=== PATIENT | male | born 1985 | race Caucasian/White ===

== ENCOUNTER 2017-04-13 23:41 | Emergency (ER) ==
[2017-04-13 23:54] VITALS: BP 143/83; TEMP 97.4; BMI 33.5
[2017-04-13] MEDS ORDERED: TORADOL IM STA (23:59)
--- NOTE | 2017-04-14 00:15 | ED.PDOC ---
General ED Provider: Dr. ELIO OBANDO Chief Complaint: Shoulder Pain/Injury Stated Complaint: Injured the left shoulder while trying to hold the grand mothers PMD. felt pulling on left shoulder, jacy since hurt to move and raise. Time Seen by Physician: 00:12 Mode of Arrival: Walk-In Information Source: Patient Nursing and Triage Documentation Reviewed and Agree: Yes Musculoskeletal Complaint Exam - Shoulder Pain Complaint/Exam Mechanism of Injury: Reports: Trauma Symptoms Are: Still present Timing: Constant Initial Severity: Moderate Current Severity: Moderate Location: Reports: Discrete Character: Reports: Aching, Throbbing Alleviating: Reports: None Aggravating: Reports: None Associated Signs and Symptoms: Reports: Bruising. Denies: Swelling, Redness, Fever, Weakness, Numbness, Tingling Related History: Reports: Similar episode Non-Orthopedic Risk Factors: Reports: None DVT Risk Factors: Reports: None, Recent travel Related Surgical History: Reports: None Shoulder Findings: Present: Ecchymosis Tenderness: Present: Proximal humerus Limited Range of Motion: Present: Abduction, Adduction, Flexion, Extension Differential Diagnoses: Closed Fracture, Sprain, Tendonitis Review of Systems - Review Of Systems Constitutional: Reports: No symptoms Eyes: Reports: No symptoms Ears, Nose, Mouth, Throat: Reports: No symptoms Respiratory: Reports: No symptoms Cardiac: Reports: No symptoms GI: Reports: No symptoms : Reports: No symptoms Musculoskeletal: Reports: Joint swelling Skin: Reports: No symptoms Neurological: Reports: No symptoms Endocrine: Reports: No symptoms Hematologic/Lymphatic: Reports: No symptoms All Other Systems: Reviewed and Negative Past Medical History - Past Medical History Previously Healthy: Yes Endocrine: Reports: None Cardiovascular: Reports: None Respiratory: Reports: None Hematological: Reports: None Gastrointestinal: Reports: None Genitourinary: Reports: None Neuro/Psych: Reports: None Musculoskeletal: Reports: None Cancer: Reports: None - Surgical History General Surgical History: Reports: None - Family History Family History: Reports: None - Social History Smoking Status: Never smoker Hx Substance Use: No Alcohol Screening: None - Immunizations Tetanus Shot up to Date: Yes Physical Exam - Physical Exam Appearance: Well-appearing, Well-nourished Pain Distress: Mild Eyes: LUZ ELENA, EOMI, Conjunctiva clear ENT: Ears normal, Nose normal, Oropharynx normal Respiratory: Airway patent, Breath sounds clear, Breath sounds equal, Respirations nonlabored Cardiovascular: RRR, Pulses normal, No rub, No murmur GI/: Soft, Nontender, No masses, Bowel sounds normal, No Organomegaly Musculoskeletal: No edema, No calf tenderness, Limited ROM, Limited strength Skin: Warm, Dry, Normal color Neurological: Sensation intact, Motor intact, Reflexes intact, Cranial nerves intact, Alert, Oriented Psychiatric: Affect appropriate, Mood appropriate Interpretation - Radiology Interpretation Radiology Interpretation By: ED Physician Radiology Results: Negative Critical Care Note - Critical Care Note Total Time (mins): 0 Course - Course Orders, Labs, Meds: Orders Category Date Time Status Ketorolac Tromethamine [Toradol] MEDS 04/13/17 23:59 Discontinued 30 mg IM ONCE STA SHOULDER, LEFT MIN 2V Stat RADS 04/13/17 23:59 Taken Medications Discontinued Medications Generic Name Dose Route Start Last Admin Trade Name Freq PRN Reason Stop Dose Admin Ketorolac Tromethamine 30 mg 04/13/17 23:59 04/14/17 00:05 Toradol IM 04/14/17 00:00 30 mg ONCE STA Administration Vital Signs: Temp Pulse Resp BP Pulse Ox 04/13/17 23:42 97.4 F L 109 H 20 143/83 H 99 Departure - Departure Time of Disposition: 00:41 Disposition: HOME SELF-CARE Discharge Problem: Shoulder pain Instructions: Shoulder Sprain (ED) Condition: Stable Pt referred to PMD for follow-up: Yes Additional Instructions: rest Hot pack Prescriptions: Cyclobenzaprine HCl [Flexeril] 5 mg PO BID #14 tablet Prednisone 5 mg PO BIDWM #14 tablet Allergies/Adverse Reactions: Allergies ciprofloxacin [From Cipro] Adverse Reaction (Verified 04/13/17 23:50) Rash Home Medications: Ambulatory Orders Acetaminophen [Tylenol] 650 mg PO Q6H PRN 04/13/17 Ibuprofen 400 mg PO Q6H PRN 04/13/17 Cyclobenzaprine HCl [Flexeril] 5 mg PO BID #14 tablet 04/14/17 Prednisone 5 mg PO BIDWM #14 tablet 04/14/17 Disposition Discussed With: Patient, Family
--- NOTE | 2017-04-14 07:10 | DI ---
EXAM: Radiographs, left shoulder HISTORY: Initial presentation for left shoulder trauma. COMPARISON: None available. TECHNIQUE: Four views. FINDINGS: Bone mineralization appears decreased although this may be accentuated by technique. The re is no fracture or dislocation. The joint spaces are maintained. No focal soft tissue abnormalit y is seen. IMPRESSION: No fracture or dislocation.
== END 2017-04-14 00:44 | disposition home or self-care (01) ==
LOC: ED 23:41
DX: S43.402A Unspecified sprain of left shoulder joint, initial encounter (principal); X50.1XXA Overexertion from prolonged static or awkward postures, initial encounter
CPT/HCPCS: 96372; 99282